=== PATIENT | male | born 1965 | race Caucasian/White ===

== ENCOUNTER 2021-02-06 04:43 | Emergency (ER) | payer OTHER ==
[2021-02-06 04:57] VITALS: BP 164/101; PULSE 88; RESP 18; TEMP 97.7
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
--- NOTE | 2021-02-06 05:56 | XR ---
EXAMINATION TYPE: XR foot complete bilateral DATE OF EXAM: 02/06/2021 COMPARISON: NONE HISTORY: Pain TECHNIQUE: 6 views FINDINGS: There is narrowing and spurring at the right foot first MP joint. There is intramedullary r od in the left tibia. There is also some narrowing and spurring at the first MP joint of the left madeline t. There is no erosion. There is no subluxation. I see no acute fracture nor dislocation. 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 Disease more severe on the righ t side. No fracture seen. No sign of inflammatory arthritis.
== END 2021-02-06 06:11 | disposition home or self-care (01) ==
LOC: EC 04:43
DX: M79.672 Pain in left foot (principal); M79.671 Pain in right foot; G47.30 Sleep apnea, unspecified; F32.9 Major depressive disorder, single episode, unspecified; F17.200 Nicotine dependence, unspecified, uncomplicated
CPT/HCPCS: 99283

== ENCOUNTER → 2022-09-11 | Outpatient (CLI) | payer BC, OTHER ==
--- NOTE | 2022-09-11 12:55 | CT ---
EXAMINATION TYPE: CT soft tissue neck w con CT DLP: 589.8 mGycm, Automated exposure control for dose reduction was used. DATE OF EXAM: 09/11/2022 12:32 PM COMPARISON: None CLINICAL INDICATION:Male, 57 years old with history of R22.1, Lt neck swelling TECHNIQUE: Standard enhanced CT of the neck. Axial sections with coronal and sagittal reformats were obtained. Contrast used:100 mL of Isovue 370 with IV Contrast, Oral contrast used: none. FINDINGS: Brain: Visualized portions are grossly unremarkable. Orbits: Unremarkable Sinuses: Grossly unremarkable. Spaces of the neck: There is a mass with peripheral higher density and central lower density within t hese superficial left parotid gland. The pharynx mucosa appears symmetrical. Musculoskeletal: No acute osseous pathology. Lymph nodes: Multiple nonenlarged lymph nodes are seen along both anterior chains of the neck. Vascular structures: Visualized major arteries are patent without evidence of aneurysm. Thoracic Inlet/airway: Airway is patent. The lung apices are clear. Soft tissues/Thyroid: Thyroid and remainder of the soft tissues are unremarkable. Other: none. IMPRESSION 1. Left superficial parotid gland lesion which may represent Warthin's tumor versus pleomorphic jose timmy versus other etiologies with carcinoma not entirely excluded, additionally secondary neoplasm suc h as metastatic disease not entirely excluded. Further evaluation with tissue sampling recommended. 2. No enlarged lymph nodes within the neck. 3. The mucosa of the pharynx appears symmetric.
== END | disposition home or self-care (01) ==
LOC: RADCTMAIN 11:56
PROVIDERS: ATTEND Internal Medicine
DX: K11.9 Disease of salivary gland, unspecified (principal); R22.1 Localized swelling, mass and lump, neck
CPT/HCPCS: 70491; Q9967